=== PATIENT | female | born 1955 | race Two or more races ===

== ENCOUNTER 2025-02-14 15:07 | Outpatient (CLI) | payer OTHER | END 2025-02-14 15:11 | disposition home or self-care (01) | LOC: RAD 15:07 | PROVIDERS: ATTEND Internal Medicine Cardiovascular Disease | DX: S41.102A Unspecified open wound of left upper arm, initial encounter (principal); X58.XXXA Exposure to other specified factors, initial encounter; Y93.9 Activity, unspecified; Y92.9 Unspecified place or not applicable; Y99.9 Unspecified external cause status ==

== ENCOUNTER 2025-07-15 10:38 | Outpatient (CLI) | payer OTHER | END 2025-07-15 10:40 | disposition home or self-care (01) | LOC: MAMO-SONO 10:38 | PROVIDERS: ATTEND Internal Medicine | DX: R92.8 Other abnormal and inconclusive findings on diagnostic imaging of breast (principal); Z12.31 Encounter for screening mammogram for malignant neoplasm of breast ==

== ENCOUNTER 2025-07-21 07:44 | Outpatient (CLI) | payer OTHER | END 2025-07-21 07:46 | disposition home or self-care (01) | LOC: MRI 07:44 | PROVIDERS: ATTEND Physical Medicine & Rehabilitation | DX: M54.17 Radiculopathy, lumbosacral region (principal) | CPT/HCPCS: 72148 ==